=== PATIENT | female | born 1965 | race Caucasian/White ===

== ENCOUNTER 2017-12-24 14:23 | Emergency (ER) | payer BC ==
[2017-12-24 14:39] VITALS: BP 145/80
[2017-12-24] MEDS ORDERED: Acetaminophen TAB* 325 MG PO ONE (15:50)
--- NOTE | 2017-12-24 15:57 | UC ---
General HPI - HPI Summary HPI Summary: Patient presents to urgent care with 2 complaints. Patient states for 2 weeks she's had a cough that has gradually become productive of green sputum. Patient states occasionally she has wheezing. Patient denies any shortness of breath. No fevers no chills. Patient states she's been taking Mucinex with little improvement. Patient denies nausea vomiting. No abdominal pain. No nausea/vomiting/diarrhea. Patient also states on Friday she slipped on water outside when she was playing with her dog. Patient states she landed with her right arm extended on her right anterior chest. Patient did not strike her head. No loss of consciousness. No blood HEENT. Full range of motion right shoulder. Patient with discomfort right anterior chest wall. Pain under right breast. No ecchymosis. No abdominal pain. Patient took ibuprofen this morning. Patient states that helped her discomfort. Patient states she came today because the ongoing productive cough as well as discomfort in the right ribs with deep breath. Patient's medications reviewed this visit - History of Current Complaint Chief Complaint: UCRespiratory Stated Complaint: COUGH, RIGHT SIDE BODY PAIN (FALL) Time Seen by Provider: 12/24/17 15:29 Hx Obtained From: Patient Pain Intensity: 7 - Allergy/Home Medications Allergies/Adverse Reactions: Allergies Allergy/AdvReac Type Severity Reaction Status Date / Time No Known Allergies Allergy Verified 12/24/17 14:39 Home Medications: Home Medications Ibuprofen TAB* [Motrin TAB* 400 MG] 400 mg PO Q6H PRN 12/24/17 [History Confirmed 12/24/17] Venlafaxine EXT RELEASE CAP* [Effexor Xr CAP*] 75 mg PO DAILY 12/24/17 [History Confirmed 12/24/17] PMH/Surg Hx/FS Hx/Imm Hx Previously Healthy: Yes - Surgical History Surgical History: Yes Surgery Procedure, Year, and Place: shoulder surgery. hysterectomy. gastric bypass - Family History Known Family History: Positive: Hypertension - Social History Lives: With Family Alcohol Use: Rare Substance Use Type: None Smoking Status (MU): Never Smoked Tobacco Review of Systems Respiratory: Cough All Other Systems Reviewed And Are Negative: Yes Physical Exam - Summary Physical Exam Summary: Vital Signs Reviewed: Yes A+Ox3, no distress, raspy voice Eyes: Conjunctiva Clear, REJI. EOM intact and full ENT: Hearing grossly normal TM x 2 clear, mmoist, uvula midline, no exudate, no erythema Neck: Positive: Supple Respiratory: Positive: No respiratory distress, No accessory muscle use + CTA throughout no w/r Cardiovascular: RRR nl s1, s2 no m/r CBT <2 sec pt with mild discomfort right anterior chest - distal ribs under margin of breast. No crepitus abd soft + BS nt/nd no guarding, no distension Musculoskeletal Exam: ANGUIANO x 4 without difficulty Strength Intact, ROM Intact Neurological: Positive: Alert, + sensation throughout Psychological: Positive: Normal Response To Family Skin: Positive: no rash, no ecchymosis Triage Information Reviewed: Yes Vital Signs: Initial Vital Signs Temp 99.1 F 12/24/17 14:34 Pulse 89 12/24/17 14:34 Resp 16 12/24/17 14:34 BP 145/80 12/24/17 14:34 Pulse Ox 99 12/24/17 14:34 Diagnostics - Radiology No standard instances Xray Interpretation: Positive (See Comments) - Patient Name: TEE LORD Medical Record#: [id number] Ordering Physician: Vernell Blanco MD Acct.#: [id number] : 1965 Age: 52 Sex: F Location: [facility] Exam Date: 12/24/17 1550 ADM Status: REG ER Order Information: RIBS RT UNI W/ PA CH MIN 3 VWS Accession Number: [id number] CPT: 22703 INDICATION: Productive cough, fall on right anterior ribs. COMPARISON: Comparison is made with a prior chest x-ray study from December 15, 2006. TECHNIQUE: 4 views of the right ribs and dual-energy PA views of the chest were obtained. FINDINGS: No fracture or significant focal osseous abnormality is seen. The heart is within normal limits in size. Mediastinal contours appear normal. There is a small infiltrate in the left midlung. No pleural effusion or pneumothorax is seen. IMPRESSION: SMALL INFILTRATE IN THE LEFT MIDLUNG. <Electronically signed by Michael Mo MD in [place]> 12/24/17 1641 Dictated By: Michael Mo MD Dictated Date/Time: 1641 Transcribed Date/Time: 12/24/17 1638 Copy to: Radiology Interpretation Completed By: Radiologist Re-Evaluation - Re-Evaluation Second Eval Comment: reviewed CXR to pt. change Rx from zithromax to Amox. hydrated. deep breaths. APAP. motrin. return precautions Course/Dx - Course Course Of Treatment: Patient presents for 2 weeks productive cough now green sputum. Patient also with right anterior chest pain following a fall on Friday. Patient took Motrin this morning with improvement. Patient has not taken anything since. Patient denies any other complaints. - Differential Dx - Multi-Symptom Provider Diagnoses: pna. Rib contusion Discharge - Sign-Out/Discharge Documenting (check all that apply): Patient Departure - Discharge Plan Condition: Stable Disposition: HOME Prescriptions: Amoxicillin PO (*) [Amoxicillin 875 MG (*)] 875 mg PO BID #20 tab Patient Education Materials: Pneumonia (ED), Rib Contusion (ED) Referrals: Yao Paz MD [Family Provider] - No Primary Care Phys,NOPCP [Primary Care Provider] - Additional Instructions: -Take antibiotics exactly as prescribed until gone -Stay well hydrated - avoid excess caffeine and all alcohol - eat regular, healthy meals - concentrate taking deep, slow breaths several times an hour - take Tylenol every 6-8 hours for pain. Take with food - apply moist heat to your ribs, 2-3 times a day to help with discomfort - It is recommended you take a cough suppressant such as Robitussin at bedtime to help with your cough -use a pillow or towel to support your ribs and take deep slow breaths several times a day - hand washing is important. Clean items that may get your secretions on them such as cell phones, ipads, computer mouse, television remotes. Once you have been on antbiotics for 2 days, change your pillowcase and your toothbrush -Contact your doctor to arrange a follow-up appointment this week. Call your doctor, return here or go to the emergency department with any questions or concerns - Billing Disposition and Condition Condition: STABLE Disposition: Home
--- NOTE | 2017-12-24 16:44 | RAD ---
INDICATION: Productive cough, fall on right anterior ribs. COMPARISON: Comparison is made with a prior chest x-ray study from December 15, 2006. TECHNIQUE: 4 views of the right ribs and dual-energy PA views of the chest were obtained. FINDINGS: No fracture or significant focal osseous abnormality is seen. The heart is within normal limits in size. Mediastinal contours appear normal. There is a small infiltrate in the left midlung. No pleural effusion or pneumothorax is seen. IMPRESSION: SMALL INFILTRATE IN THE LEFT MIDLUNG.
== END 2017-12-24 17:04 | disposition home or self-care (01) ==
LOC: UCCORT 14:23
DX: J18.9 Pneumonia, unspecified organism (principal); S20.211A Contusion of right front wall of thorax, initial encounter; W01.0XXA Fall on same level from slipping, tripping and stumbling without subsequent striking against object, initial encounter; Y93.89 Activity, other specified; Y92.9 Unspecified place or not applicable
CPT/HCPCS: 99202; A9270-GY; G0463

== ENCOUNTER 2018-03-09 20:49 | Emergency (ER) | payer BC ==
[2018-03-09 21:37] VITALS: BP 146/92
[2018-03-09] MEDS ORDERED: Tetan/Diph/Pertus SYR(Tdap)* 0.5 ML SYR(BOOSTRIX) use SYR IM ONE (21:47)
[2018-03-09] MEDS ORDERED: Lidocaine 1%* 5 ML VIAL INJ ONE (21:49)
--- NOTE | 2018-03-09 22:18 | ED ---
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 sustained laceration to the right upper lip involving the vermilion border - History of Current Complaint Stated Complaint: CAT SCRATCH/FACE Time Seen by Provider: 03/09/18 21:43 Hx Obtained From: Patient Mechanism of Injury: Sharp/Blunt Trauma Onset/Duration: Sudden Onset Current Severity: Mild Pain Intensity: 2 Associated Signs & Symptoms: Negative - Allergy/Home Medications Allergies/Adverse Reactions: Allergies Allergy/AdvReac Type Severity Reaction Status Date / Time No Known Allergies Allergy Verified 03/09/18 21:29 PMH/Surg Hx/FS Hx/Imm Hx Previously Healthy: Yes - Surgical History Surgery Procedure, Year, and Place: shoulder surgery. hysterectomy. gastric bypass Infectious Disease History: No Infectious Disease History: Reports: Traveled Outside the [place] in Last 30 Days - [place] - Family History Known Family History: Positive: Hypertension - Social History Alcohol Use: Rare Substance Use Type: Reports: None Smoking Status (MU): Never Smoked Tobacco Review of Systems Constitutional: Negative Eyes: Negative ENT: Negative Cardiovascular: Negative Respiratory: Negative Gastrointestinal: Negative Genitourinary: Negative Musculoskeletal: Negative All Other Systems Reviewed And Are Negative: Yes Physical Exam Triage Information Reviewed: Yes Vital Signs On Initial Exam: Initial Vitals Temp Pulse Resp BP Pulse Ox 36.7 C 67 16 146/92 100 03/09/18 21:29 03/09/18 21:29 03/09/18 21:29 03/09/18 21:29 03/09/18 21:29 Vital Signs Reviewed: Yes Appearance: Positive: Well-Appearing Skin: Positive: Warm, Dry Head/Face: Positive: Other - laceration of right upper lip , including the vermilion border Eyes: Positive: Normal Procedures - Procedure Summary Procedure Summary: prepped and draped in sterile fashion , with 1% lidocaine, provided local anesthesia 5/0 vicryl used to appose vermilion border 5/0 ethilon used to appose skin 1.0cm in length Diagnostics - Vital Signs Vital Signs Temp Pulse Resp BP Pulse Ox 03/09/18 21:29 36.7 C 67 16 146/92 100 - Laboratory Lab Statement: Any lab studies that have been ordered have been reviewed, and results considered in the medical decision making process. Laceration Repair Course/Dx - Clinical Impression Provider Diagnoses: Laceration of lip Discharge - Sign-Out/Discharge Documenting (check all that apply): Patient Departure All imaging exams completed and their final reports reviewed: No Studies - Discharge Plan Condition: Good Disposition: HOME Patient Education Materials: Laceration (DC) Referrals: Yao Paz MD [Primary Care Provider] - - Billing Disposition and Condition Condition: GOOD Disposition: Home
== END 2018-03-09 22:29 | disposition home or self-care (01) ==
LOC: UCCORT 20:49
DX: S01.511A Laceration without foreign body of lip, initial encounter (principal); W55.03XA Scratched by cat, initial encounter; Y93.89 Activity, other specified; Y92.9 Unspecified place or not applicable
CPT/HCPCS: 12011; 90471; 90715; 99211; G0463